=== PATIENT | female | born 1965 | race Caucasian/White ===

== ENCOUNTER 2016-10-31 13:38 | Emergency (ER) | payer MEDICAID ==
[~2016-10-31] VITALS: Ht 160 cm; Wt 155.9 kg
[~2016-10-31 13:38] MED LIST: CYCL1TAB29 PO
[2016-10-31 13:42] VITALS: BP 131/99; PULSE 102; RESP 16; TEMP 98.1; O2SAT 95
--- NOTE | 2016-10-31 14:11 | PD ---
HPI . left foot pain s/p fall Chief Complaint: Injury Time Seen by Provider: 14:10 Travel History International Travel<30 days: No Contact w/Intl Traveler<30days: No Traveled to known affect area: No History of Present Illness HPI 51-year-old female with no past medical history here with complaints of left heel pain that started earlier today. Patient was walking and somehow tripped in a hole and now hurt her left heel. She tells me that the pain is very significant and she has difficulty moving it. At rest there are no issues, with movement pain is rated 10/10. Patient declines any pain medications in the emergency department. She says that she fell and hit her face, however denies any head injury or loss of consciousness. She does not have any headache or confusion. She is accompanied by her daughter and grandchildren. PFSH Past Medical History Anxiety: Yes Depression: Yes Heart Rhythm Problems: No Cardiac Catheterization: No Cardiovascular Problems: Yes (CHEST PAIN) High Cholesterol: No Congestive Heart Failure: No Diabetes: No Diminished Hearing: No Hypertension: Yes Immunizations Current: No Thyroid Disease: Yes Tetanus Vaccination: > 5 Years Influenza Vaccination: No ?: Not LMP: Ablation Dilation and Curettage (D&C): Yes Tubal Ligation: Yes Past Surgical History Abdominal Surgery: Yes (Hernia repair) Section: Yes Cholecystectomy: Yes Coronary Artery Bypass Graft: No Gynecologic Surgery: Yes (Uterina ablation) Other Surgery: Yes (Nasal FX, sebacious cyst) Family History Family Myocardial Infarction: Yes (MOTHER AND GRANDMOTHER) Family Hypercholesterolemia: Yes Social History Alcohol Use: No Tobacco Use: No Substance Use: No Allergies-Medications (Allergen,Severity, Reaction): Coded Allergies: Codeine (Verified Allergy, Severe, NAUSEA VOMITING RASH, 10/31/16) Flu Vaccine (Verified Allergy, Severe, RASH, 10/31/16) Penicillin (Verified Allergy, Severe, THROAT SWELLS, 10/31/16) Tetanus Toxoid (Verified Allergy, Severe, SWELLING, 10/31/16) Varicella Vaccine (Verified Allergy, Severe, RASH AND HIVES, 10/31/16) Cortisone (Verified Allergy, Mild, N/V, 10/31/16) Reported Meds & Prescriptions Reported Meds & Active Scripts Active No Active Prescriptions or Reported Medications Review of Systems General / Constitutional: No: Fever Eyes: No: Visual changes HENT: No: Headaches Cardiovascular: No: Chest Pain or Discomfort Respiratory: No: Shortness of Breath Gastrointestinal: No: Abdominal Pain Genitourinary: No: Dysuria Musculoskeletal: Positive: Pain (left heel pain) Skin: No Rash Neurologic: No: Weakness Psychiatric: No: Depression Endocrine: No: Polydipsia Hematologic/Lymphatic: No: Easy Bruising Physical Exam Narrative GENERAL: AAO x 3, no acute distress, Well-nourished, well-developed patient. SKIN: Warm and dry. No visible rashes or bruising. HEAD: Normocephalic and atraumatic. EYES: No scleral icterus. No injection or drainage. EOM intact. ENT: No nasal drainage noted. Airway patent. NECK: Supple, trachea midline. No JVD. CARDIOVASCULAR: Regular rate and rhythm without murmurs, gallops, or rubs. RESPIRATORY: Breath sounds equal bilaterally. No accessory muscle use. No rhonchi or rales. GASTROINTESTINAL: Abdomen soft, non-tender, nondistended. EXTREMITIES: No cyanosis or edema. left heel tender to touch, no ecchymosis or edema BACK: Nontender without obvious deformity. No CVA tenderness. PSYCH: AAO x 3, normal affect. Data Data Last Documented VS Vital Signs Date Time Temp Pulse Resp B/P Pulse Ox O2 Delivery O2 Flow Rate FiO2 10/31/16 13:42 98.1 102 16 131/99 95 Orders Foot, Heel Only ([id number]) (10/31/16 14:14) MDM Medical Decision Making Medical Screen Exam Complete: Yes Emergency Medical Condition: Yes Medical Record Reviewed: Yes Differential Diagnosis heel contusion, ankle/foot sprain, less likely fracture Narrative Course 51-year-old female with no past medical history here with complaints of left heel pain that started earlier today. Patient was walking and somehow tripped in a hole and now hurt her left heel. She tells me that the pain is very significant and she has difficulty moving it. At rest there are no issues, with movement pain is rated 10/10. Patient declines any pain medications in the emergency department. She says that she fell and hit her face, however denies any head injury or loss of consciousness. She does not have any headache or confusion. She is accompanied by her daughter and grandchildren. Patient seen and examined. She does have some significant tenderness to the left heel. NO head CT per [place] [facility] rules. X-ray ordered. Patient declined any pain medication. Last Impressions Foot X-Ray 10/31/16 1414 Signed Impressions: Service Date/Time: Monday, October 31, 2016 14:29 - CONCLUSION: Fracture is not appreciated. Bassem Clarke MD FACR No acute fracture. Advised gael wrap, post op shoe and crutches Ibuprofen OTC PRN pain and inflammation Advised if pain persists past 7-10 days to f/u with PCP. Patient verbalized understanding of instructions, questions were answered, and thanked me for their care. I advised them if their condition worsens, please return to the nearest emergency room for further care. Diagnosis Primary Impression: Contusion of left heel Qualified Code: S90.32XA - Contusion of left heel, initial encounter Patient Instructions: Contusion in Adults (ED), General Instructions Additional Instructions: Rest the affected area as much as possible. Ice this area for 15-20 minutes at a time. You can do this every hour or as much as tolerated. Keep this area compressed (gael bandage) as tolerated. Elevate this area. Use ibuprofen as needed for pain and inflammation. Please return to emergency department if your symptoms return or worsen. Follow up with your primary care provider. Take medications as prescribed. If pain persists past 7-10 days, please follow-up with your primary care provider. Med/Other Pt SpecificInfo: No Change to Meds Scripts No Active Prescriptions or Reported Meds Disposition: 01 DISCHARGE HOME Condition: Stable Rachael Rodgers Oct 31, 2016 14:11
--- NOTE | 2016-10-31 14:58 | RADHPO ---
EXAM DATE/TIME: 10/31/2016 14:29 [facility] COMPARISON: No previous studies available for comparison. INDICATIONS : Left heel pain after fall. MEDICAL HISTORY : None. SURGICAL HISTORY : None. ENCOUNTER: Initial ACUITY: 1 day PAIN SCORE: 10/10 LOCATION: Left heel FINDINGS: Plantar and Achilles spurring is present. Fracture is not appreciated. CONCLUSION: Fracture is not appreciated. Bassem Clarke MD FACR on October 31, 2016 at 14:56 Board Certified Radiologist. This report was verified electronically.
[2016-11-04] MEDS ORDERED: HYDR-3516 PO (15:59)
[2016-12-15] MEDS ORDERED: HYDR-3516 PO (11:05)
== END 2016-10-31 15:30 | disposition home or self-care (01) ==
LOC: PHEFT 13:38
DX: S90.32XA Contusion of left foot, initial encounter (principal); W17.2XXA Fall into hole, initial encounter; Y93.01 Activity, walking, marching and hiking
CPT/HCPCS: 73650; 99283; E0113

== ENCOUNTER → 2017-09-04 | Outpatient (CLI) | payer MEDICAID, OTHER ==
[~2017-09-04] MED LIST changes: +CYCL10TA PO; -CYCL1TAB29 PO; +HYDR-3516 PO; +VITA1000 PO; +[UNRECOGNIZED DRUG - CODE] PO
[2017-09-04 12:23] LABS: AUTOMATED NEUTROPHIL # 4.2 TH/MM3 (1.8-7.7); BASOPHIL % 0.7 % (0.0-2.0); EOSINOPHIL # 0.1 TH/MM3 (0-0.4); EOSINOPHIL % 0.8 % (0.0-4.0); HEMATOCRIT 39.4 % (35.0-46.0); HEMOGLOBIN 13.2 GM/DL (11.6-15.3); LYMPH % 30.7 % (9.0-44.0); LYMPHOCYTE # 2.1 TH/MM3 (1.0-4.8); MEAN CELL VOLUME 92.5 FL (80.0-100.0); MEAN CORPUSCULAR HEMOGLOBIN 31.1 PG (27.0-34.0); MEAN CORPUSCULAR HGB CONC 33.6 % (32.0-36.0); MEAN PLATELET VOLUME 7.9 FL (7.0-11.0); MONO % 7.5 % (0.0-8.0); MONOCYTE # 0.5 TH/MM3 (0-0.9); NEUT % 60.3 % (16.0-70.0); PLATELET COUNT 167 TH/MM3 (150-450); RED BLOOD COUNT 4.26 MIL/MM3 (4.00-5.30); RED CELL DISTRIBUTION WIDTH 14.3 % (11.6-17.2)
[2017-09-04 12:39] LABS: BICARBONATE 30.9 MEQ/L (21.0-32.0); BLOOD UREA NITROGEN 8 MG/DL (7-18); CALCIUM 9.6 MG/DL (8.5-10.1); CHLORIDE 103 MEQ/L (98-107); CREATININE 0.82 MG/DL (0.50-1.00); GLOMERULAR FILTRATION RATE 74 ML/MIN (>89); GLUCOSE,FASTING 105 MG/DL (74-99); SODIUM (NA) 137 MEQ/L (136-145)
--- NOTE | 2017-09-06 01:21 | EKG ---
Date Performed: 09/04/2017 Time Performed: 11:39:36 PTAGE: 52 years EKG: Sinus rhythm LOW QRS VOLTAGE IN PRECORDIAL LEADS INCOMPLETE RIGHT BUNDLE BRANCH BLOCK POSSIBLE ANTERIOR MYOCARDIA L INFARCTION, PROBABLY OLD BORDERLINE ECG Since the prior tracing, there has been no significant huggins DOCTOR: Hussain Cramer Interpretating Date/Time 09/06/2017 01:19:06
== END ==
LOC: CPRE 11:18
PROVIDERS: ATTEND Obstetrics & Gynecology
DX: Z01.812 Encounter for preprocedural laboratory examination (principal); Z01.810 Encounter for preprocedural cardiovascular examination; R10.2 Pelvic and perineal pain
CPT/HCPCS: 36415; 80048; 84703; 85025; 93005

== ENCOUNTER → 2017-09-07 | Day surgery (SDC) | payer MEDICAID, OTHER ==
[~2017-09-07] VITALS: Ht 160 cm; Wt 158.0 kg
[~2017-09-07] MED LIST changes: +ACETAMINOPHEN 1000 MG/100 ML 100 ML IV ONE; +APREPITANT 40 MG CAP ONE; +APREPITANT 40 MG CAP PO ONE; +CHLORHEXIDINE GLUCONATE 2 % 1 PACK (2 CLOTHS) TOPICAL PRN; +DO NOT ADM ANY ANTICOAGULANT DRUGS PRN; +KETOROLAC TROMETHAMINE 30 MG/ML (IVP) VIAL IV PUSH ONE; +KETOROLAC TROMETHAMINE 30 MG/ML (IVP) VIAL IVP ONE; +LACTATED RINGER'S 1000 ML IV PRN; +LIDOCAINE 1%/EPINEPHrine 1:100,000 SOLN 50 ML VIAL ONE; +LIDOCAINE HCL 1% PF 5 ML SYRINGE OTHER ONE; +METOPROLOL TARTRATE 25 MG TAB PO PRN; +MIDAZOLAM HCL 2 MG/2 ML VIAL ONE; +ONDANSETRON HCL 4 MG/2 ML VIAL IV ONE; +ONDANSETRON HCL 4 MG/2 ML VIAL IVP PRN; +POVIDONE IODINE 5% (ANTISEPSIS KIT) 4 APPLICATIONS EACH NARE PRN; +PROPOFOL 200 MG/20 ML AMP IV ONE; +SODIUM CHLORID 0.9% 500 ML IV PRN; +SODIUM CHLORIDE 0.9% FLUSH 10 ML FLUSH IV FLUSH PRN; +SODIUM CHLORIDE 0.9% FLUSH 10 ML FLUSH IV FLUSH SCH; +SUCCINYLCHOLINE CHLORIDE 200 MG/10 ML VIAL IV ONE; +oxyCODONE/ACETAMINOPHEN 5 MG/325 MG TAB PO PRN
[2017-09-07 09:55] VITALS: BP 132/75; PULSE 85; RESP 18; TEMP 97.8; O2SAT 97
--- NOTE | 2017-09-07 12:37 | HHI.PR ---
Immediate Post Op Note Procedure Date: Sep 07, 2017 Pre Op Diagnosis: Pelvic pain, vaginal bleeding, morbid obesity Post Op Diagnosis: Same as above with the addition of cervical stenosis, suspected uterine synechiae Surgeon: Adam Paris Printing Plate Setter(s): None Procedure: Evaluation under anesthesia, MyoSure hysteroscopy with attempted resection a of uterine adhesions Findings: Cervical stenosis, normal endocervical canal, possible false track creation or diffuse uterine synechiae, attempted resection Additional Information: Fluid deficit: 1000 cc normal saline Fluid replacement 1 L Urine output 50 cc blood loss 5 cc Specimen: endometrial curettings Complications none Dictation number: [id number] Anesthesia: General Patient to: PACU Patient Condition: Good Aadm Paris MD Sep 07, 2017 12:37
--- NOTE | 2017-09-08 11:19 | MP ---
cc: PALMER CARROLL MD DATE OF SURGERY 09/07/2017 DATE OF 1965 PREOPERATIVE DIAGNOSIS 1. Pelvic pain 2. Postmenopausal bleeding 3. Morbid obesity POSTOPERATIVE DIAGNOSIS 1. Pelvic pain 2. Postmenopausal bleeding 3. Morbid obesity 4. Cervical stenosis 5. Intrauterine synechiae PROCEDURE Diagnostic hysteroscopy, attempted resection of intrauterine adhesions. SURGEON Palmer Carroll MD OVERCOIL STEPPER SURGEON None FINDINGS Normal external female genitalia, vagina is atrophic. Cervical stenosis, minimal cervical tissue status post LEEP excision, intrauterine synechiae. No identifiable normal intrauterine cavity, could not visualize cornual ostia. Could have possibly made a false tract but believe has significant ashermans. ESTIMATED BLOOD LOSS 5 cc URINE OUTPUT 50 cc via in and out FLUID DEFICIT 1070 cc normal saline FLUIDS REPLACEMENT One liter SPECIMEN Suspected endometrial curettings to pathology routine. PROPHYLAXIS DVT prophylaxis, sequential compression devices. ANTIBIOTICS None required ANESTHESIA General endotracheal TIME OUT DONE Correct COUNTS Correct times two DISPOSITION Stable to PACU, then home. COMPLICATIONS None INDICATIONS This patient is a 52 year-old female who is seen in an outpatient setting. She had pelvic pain and some postmenopausal spotting. She had a fluid collection identified in the endometrium. She had a previous LEEP excision of her cervix and endometrial ablation. She was counseled for hysteroscopy, resection of suspected synechiae and possible Mirena IUD insertion, please see H&P and consent for further details. DESCRIPTION OF PROCEDURE The patient was taken to the operating room, placed under general anesthesia, positioned in the lithotomy position in yellow-fin stirrups. The vagina and perineum were prepped and draped in a sterile fashion. The bladder was drained. A weighted speculum was placed posteriorly in a right angle anteriorly. A tenaculum was applied to the anterior lip of the cervix. Serial Aly dilators up to 17 K[place]ili, the cervix was dilated with some difficulty to find the os intially. I did not pressfurther once resistance was met due to a concern for creating a false tract, but the cervix dilated fairly easily. However even though it was stenotic, the MyoSure reach hysteroscope was inserted into the cervix and the endocervical canal was followed easily. There was a pinpoint hole which would lead me to suspect my lead to the endometrial cavity. This was opened up bluntly and with some sharp resection of the MyoSure, there was either more adhesions, but somewhat appeared to be a cavity. Due to the extensive amount of adhesions and poor identifiable intrauterine cavity and inability to perform abdominal ultrasound at the time of procedure due to her body habitus and lack of resources, I could not confirm this was in the uterine cavity and the Mirena was not placed and the procedure was terminated. There was no concern for fluid deficit. The tenaculum was removed from the cervix. There was a small laceration periurethral due to her atrophic vaginal tissue. This was repaired with a [id number] of 3-0 Vicryl. Hemostasis was appreciated. The patient was awoken from anesthesia and transferred to PACU in stable condition. MD VOLODYMYR Rodriguez/BRUNO /8:34 AM /10:42 AM ANDREW
== END | disposition home or self-care (01) ==
LOC: HSDC 05:13
PROVIDERS: ATTEND Obstetrics & Gynecology
DX: N95.0 Postmenopausal bleeding (principal); N85.6 Intrauterine synechiae; N73.6 Female pelvic peritoneal adhesions (postinfective); I10 Essential (primary) hypertension; E66.01 Morbid (severe) obesity due to excess calories; Z68.44 Body mass index [BMI] 60.0-69.9, adult
CPT/HCPCS: 00952; 36415; 58563; 86850; 86900; 86901; 88305; J0131; J0330; J1885; J2250; J2405; J3010; J7120; J8501